=== PATIENT | male | born 1965 | race Caucasian/White ===

== ENCOUNTER 2018-11-11 08:15 | Day surgery (SDC) | payer MEDICARE, MEDICAID ==
[~2018-11-11 08:15] MED LIST: Lactated Ringers 1,000 ML IV SCH; Sodium Chloride 0.9% 10 ML Syringe FLUSH PRN; Sodium Chloride 0.9% 2.5 ML Syringe FLUSH PRN
--- NOTE | 2018-11-11 09:13 | PCM.PREANE ---
Preanesthetic Assessment - Anesthesia/Transfusion/Family Hx Anesthesia History: Prior Anesthesia Without Reaction Family History of Anesthesia Reaction: No Transfusion History: No Prior Transfusion(s) - Review of Systems General: No Symptoms Pulmonary: No Symptoms Cardiovascular: No Symptoms Gastrointestinal: No Symptoms Neurological: No Symptoms Other: Reports: None - Physical Assessment NPO Status Date: 11/11/18 NPO Status Time: 06:00 O2 Sat by Pulse Oximetry: 99 Respiratory Rate: 18 Vital Signs: Last Vital Signs Temp 97.9 F 11/11/18 08:36 Pulse 79 11/11/18 08:36 Resp 18 11/11/18 08:36 BP 131/79 11/11/18 08:36 Pulse Ox 99 11/11/18 08:36 Height: 5 ft 5 in Weight: 75.75 kg ASA Class: 2 Mental Status: Alert & Oriented x3 Airway Class: Mallampati = 2 Dentition: Reports: Normal Dentition ROM/Head Extension: Full Lungs: Clear to Auscultation, Normal Respiratory Effort Cardiovascular: Regular Rate, Regular Rhythm - Allergies Allergies/Adverse Reactions: Allergies Allergy/AdvReac Type Severity Reaction Status Date / Time No Known Allergies Allergy Verified 11/06/18 13:06 - Anesthesia Plan Pre-Op Medication Ordered: None - Acknowledgements Anesthesia Type Planned: MAC Pt an Appropriate Candidate for the Planned Anesthesia: Yes Alternatives and Risks of Anesthesia Discussed w Pt/Guardian: Yes Pt/Guardian Understands and Agrees with Anesthesia Plan: Yes Additional Comments: PMH: htn, smoker, dm2, has CSP shunt placed age 11 -apparently still working well PLAN: mac/tiva PreAnesthesia Questionnaire HEENT History: Reports: Other (See Below) Other HEENT History: wears glasses Cardiovascular History: Reports: High Cholesterol, Hypertension Gastrointestinal History: Reports: Chronic Constipation Musculoskeletal History: Reports: Other (See Below) Other Musculoskeletal History: occasional back pain Neurological History: Reports: Other (See Below) Other Neuro History: hydrocephalus as a child Endocrine/Metabolic History: Reports: Diabetes, Type II - Past Surgical History Head Surgeries/Procedures: Reports: None HEENT Surgical History: Reports: Eye Surgery, Tonsillectomy GI Surgical History: Reports: Cholecystectomy, Colonoscopy Neurological Surgical History: Reports: Other (See Below) Other Neurological Surgeries/Procedures: cranial shunting x2, (once at 1 month of age and again at 11 years old) - SUBSTANCE USE Smoking Status *Q: Current Every Day Smoker Tobacco Use Within Last Twelve Months: Cigarettes Recreational Drug Use History: No - HOME MEDS Home Medications: Home Meds Ascorbate Calcium [Vitamin C] 100 mg PO DAILY 11/06/18 [History] Aspirin 81 mg CHEW DAILY 11/06/18 [History] Calcium Polycarbophil [Fibercon] 1 tab PO BID 11/06/18 [History] Cholecalciferol (Vitamin D3) [Vitamin D3] 400 units PO DAILY 11/06/18 [History] Cyclobenzaprine HCl 10 mg PO BID PRN 11/06/18 [History] Dextroamphetamine/Amphetamine [Adderall] 30 mg PO DAILY 11/06/18 [History] Docusate Sodium [Stool Softener] 500 mg PO BID PRN 11/06/18 [History] Lisinopril 10 mg PO DAILY 11/06/18 [History] Loratadine [Claritin] 10 mg PO DAILY 11/06/18 [History] Multivitamin [Multivitamins] 1 tab PO DAILY 11/06/18 [History] Valencia-3/DHA/Epa/Fish Oil [Valencia-3 Fish Oil 1,000 MG Sfgl] 1,000 mg PO BID [History] hydroCHLOROthiazide [Hydrochlorothiazide] 25 mg PO DAILY 11/06/18 [History] metFORMIN HCl [Metformin HCl] 500 mg PO DAILY 11/06/18 [History] - CURRENT (IN HOUSE) MEDS Current Meds: Current Medications Lactated Ringer's (Ringers, Lactated) 1,000 mls @ 125 mls/hr IV ASDIRECTED [facility] Last Admin: 11/11/18 08:40 Dose: 125 mls/hr Sodium Chloride (Saline Flush) 10 ml FLUSH ASDIRECTED PRN PRN Reason: Keep Vein Open Sodium Chloride (Saline Flush) 2.5 ml FLUSH ASDIRECTED PRN PRN Reason: Keep Vein Open Sodium Chloride (Saline Flush) 10 ml FLUSH ASDIRECTED PRN PRN Reason: Keep Vein Open Sodium Chloride (Saline Flush) 2.5 ml FLUSH ASDIRECTED PRN PRN Reason: Keep Vein Open
[2018-11-11] MEDS ORDERED: Midazolam 1 MG/ML 2 ML SDV ONE (09:28)
[2018-11-11] MEDS ORDERED: Propofol 200 MG/20 ML SDV ONE (09:28)
[2018-11-11] MEDS ORDERED: fentaNYL 100 MCG/2 ML SDV ONE (09:29)
--- NOTE | 2018-11-11 10:12 | PCM.OPNOTE ---
- General Post-Op/Procedure Note Date of Surgery/Procedure: 11/11/18 Operative Procedure(s): diagnostic colonoscopy Findings: diverticulosis through out the rectum and rectal polyp Pre Op Diagnosis: change in bowel habits Post-Op Diagnosis: Diverticulosis throught out the rectum and rectal polyp Anesthesia Technique: General Mask Complications: None Condition: Good
--- NOTE | 2018-11-11 11:19 | PCM.POSTAN ---
POST ANESTHESIA ASSESSMENT - MENTAL STATUS Mental Status: Alert, Oriented - RESPIRATORY Respiratory Status: Respiratory Rate WNL, Airway Patent, O2 Saturation Stable - CARDIOVASCULAR CV Status: Pulse Rate WNL, Blood Pressure Stable - GASTROINTESTINAL GI Status: No Symptoms - POST OP HYDRATION Hydration Status: Adequate & Stable
--- NOTE | 2018-11-11 11:19 | PCM48HPAN ---
Post Anesthesia Note - EVALUATION WITHIN 48HRS OF ANESTHETIC Vital Signs in Normal Range: Yes Patient Participated in Evaluation: Yes Respiratory Function Stable: Yes Airway Patent: Yes Cardiovascular Function Stable: Yes Hydration Status Stable: Yes Pain Control Satisfactory: Yes Nausea and Vomiting Control Satisfactory: Yes Mental Status Recovered: Yes Resp Rate: 16
--- NOTE | 2018-11-11 11:54 | OR ---
SURGEON: RANCHO DYE MD DATE OF PROCEDURE: 11/11/2018 PREOPERATIVE DIAGNOSIS: Change in bowel habits. POSTOPERATIVE DIAGNOSES: 1. Diverticulosis. 2. Rectal polyp. PROCEDURE PERFORMED: Diagnostic colonoscopy. ANESTHESIA: MAC. INSTRUMENT USED: Olympus colonoscope. EXTENT OF EXAM: To the cecum. PREPARATION: Fair. LIMITATIONS: None. INDICATION FOR EXAMINATION: The patient is a 53-year-old male who presents with an acute change in his bowel habits. We discussed the need for a diagnostic colonoscopy. I explained the procedure, expected perioperative course, and risks including bleeding, infection, damage to surrounding structures including perforation. The patient verbalized understanding and wishes to proceed. PROCEDURE IN DETAIL: The patient was brought into the endoscopy suite and placed in the left lateral decubitus position. A time-out was completed verifying the patient's name, age, date of , allergies, and procedure to be performed. Monitored anesthesia care was induced and continuous oxygen was provided via nasal cannula throughout the procedure. After adequate sedation was achieved, a digital rectal exam was performed. This exam was within normal limits. A well lubricated colonoscope was inserted into the rectum and advanced under direct visualization to the level of the cecum. The cecum was identified by both visual and anatomic landmarks. A photograph was taken of the cecal cap; however, I could not retroflex the scope within the cecum due to looping of the scope more proximally. The scope was then fully withdrawn while examining the color, texture, anatomy, and integrity of the mucosa from the cecum to the anal canal. The patient was noted to have diverticulosis scattered throughout the colon. Once the scope was brought into the rectum, I noted a small sessile polyp. This was removed using a cold biopsy forceps and sent to pathology, labeled as rectal polyp. The scope was then retroflexed within the rectum to allow visualization of the anal canal opening. This appeared normal and a photograph was taken. The scope was then straightened out and fully withdrawn. The cecum to anus time was 14 minutes. There was a large amount of liquid stool in the colon which required quite a bit of irrigation in order to see the colonic mucosa; however, I was able to adequately perform the colonoscopy itself. The patient was awoke and then taken to the PACU in stable condition. ENDOSCOPIC DIAGNOSES: 1. Rectal polyp. 2. Diverticulosis. RECOMMENDATIONS: Follow up in clinic in 2 weeks. WOODY MEADOWS /[id number] MTDD
== END 2018-11-11 11:14 | disposition home or self-care (01) ==
LOC: MW.SDS 08:15
PROVIDERS: ATTEND Surgery
DX: R19.4 Change in bowel habit (principal); D12.8 Benign neoplasm of rectum; K57.30 Diverticulosis of large intestine without perforation or abscess without bleeding; I10 Essential (primary) hypertension; E11.9 Type 2 diabetes mellitus without complications; F17.210 Nicotine dependence, cigarettes, uncomplicated; Z68.27 Body mass index [BMI] 27.0-27.9, adult; E78.00 Pure hypercholesterolemia, unspecified; Z79.82 Long term (current) use of aspirin; Z79.84 Long term (current) use of oral hypoglycemic drugs; Z79.899 Other long term (current) drug therapy; Z98.2 Presence of cerebrospinal fluid drainage device
CPT/HCPCS: 45380; J2001; J2250; J2704; J3010; J7120; 88305

== ENCOUNTER 2023-12-26 08:11 | Day surgery (SDC) | payer MEDICARE, MEDICAID ==
[~2023-12-26 08:11] MED LIST changes: -Lactated Ringers 1,000 ML IV SCH; +Sodium Chloride 0.9% 20 ML SDV IV PRN
[2023-12-26] MEDS ORDERED: propofoL 50 ML ONE (08:39)
[2023-12-26] MEDS: Lactated Ringers 1,000 ML IV SCH (08:40)
[2023-12-26] MEDS ORDERED: Propofol 200 MG/20 ML SDV ONE ×2 (09:47→09:58)
[2023-12-26] MEDS ORDERED: fentaNYL 100 MCG/2 ML SDV ONE (10:00)
== END 2023-12-26 11:15 | disposition home or self-care (01) ==
LOC: MW.SDS 08:11
PROVIDERS: ATTEND Surgery
DX: Z12.11 Encounter for screening for malignant neoplasm of colon (principal); D12.3 Benign neoplasm of transverse colon; D12.0 Benign neoplasm of cecum; K57.30 Diverticulosis of large intestine without perforation or abscess without bleeding; I10 Essential (primary) hypertension; E11.9 Type 2 diabetes mellitus without complications; E78.00 Pure hypercholesterolemia, unspecified; F17.210 Nicotine dependence, cigarettes, uncomplicated; Z79.82 Long term (current) use of aspirin; Z79.84 Long term (current) use of oral hypoglycemic drugs; Z79.899 Other long term (current) drug therapy
CPT/HCPCS: 45380; 45385; J2704; J3010; J7120